=== PATIENT | female | born 1995 | race Caucasian/White ===

== ENCOUNTER 2016-07-25 10:30 | Outpatient (CLI) | payer BC | END 2016-07-25 10:31 | disposition home or self-care (01) | DX: N39.0 Urinary tract infection, site not specified (principal) ==

== ENCOUNTER 2017-06-04 10:31 | Outpatient (CLI) | payer OTHER ==
--- NOTE | 2017-06-09 16:13 | Ultrasound Report ---
EXAM: Ultrasound right breast. 06/04/2017 CLINICAL INDICATION: Palpable abnormality 11 o'clock right breast on clinical examination. TECHNIQUE: Real-time scanning was performed with medical field representative static images obtained. Ultrasound of the right upper breast was performed. Heterogeneous fibroglandular parenchyma is seen. No discrete solid or cystic lesion is appreciated. No sonographically suspicious findings are identified. IMPRESSION: No sonographic correlate to the palpable abnormality. RECOMMENDATIONS: Continued clinical management. Routine annual mammography, commencing at age 40, unless otherwise clinically indicated. BIRADS 1 - Negative. TD: 06/04/2017 19:40 MTDShannon
== END 2017-06-04 10:32 | disposition home or self-care (01) ==
LOC: DI 10:31
PROVIDERS: ATTEND Family Medicine
DX: N63.11 Unspecified lump in the right breast, upper outer quadrant (principal)
CPT/HCPCS: 76642

== ENCOUNTER 2019-04-06 02:46 | Emergency (ER) | payer MEDICAID, OTHER ==
[2019-04-06 02:57] VITALS: BP 125/77
[2019-04-06 03:05] LABS: BILIRUBIN,URINE NEGATIVE (NEGATIVE); GLUCOSE, URINE (UA) NEGATIVE (NEGATIVE); KETONES,URINE (UA) NEGATIVE (NEGATIVE); LEUKOCYTE ESTERASE, URINE NEGATIVE (NEGATIVE); NITRITE,URINE NEGATIVE (NEGATIVE); OCCULT BLOOD,URINE NEGATIVE (NEGATIVE); PROTEIN,URINE NEGATIVE (NEGATIVE); UROBILINOGEN,URINE 0.2 (NORMAL) E.U./dL (NORMAL)
[2019-04-06 03:07] LABS: CLARITY,URINE CLEAR (CLEAR); HCG UR QUAL NEGATIVE
--- NOTE | 2019-04-06 03:10 | ED Physician Documentation ---
PD HPI ABD PAIN - Stated complaint Stated Complaint: R ABD PX - Chief complaint Chief Complaint: Abd Pain - History obtained from History obtained from: Patient - History of Present Illness Timing - onset: How many hours ago (1) Timing - duration: Hours (1) Timing - details: Abrupt onset, Still present (improving after arrival to the ER. Only mild pain on my initial exam.) Quality: Cramping, Aching, Pain Location: RLQ, Suprapubic Improved by: Laying still Worsened by: Moving, Palpation. No: Breathing Associated symptoms: Nausea, Vomiting. No: Fever, Diarrhea, Constipation, Dysuria, Vaginal dc Similar symptoms before: Diagnosis (Similar to ruptured cyst she has had in the past. She denies any history of kidney stones.) Recently seen: Not recently seen Review of Systems Constitutional: denies: Fever, Chills Nose: denies: Rhinorrhea / runny nose, Congestion Throat: denies: Sore throat Respiratory: denies: Cough GI: reports: Abdominal Pain, Nausea, Vomiting : denies: Dysuria, Frequency, Missed period PD PAST MEDICAL HISTORY - Past Medical History Cardiovascular: None Respiratory: None Neuro: None Endocrine/Autoimmune: None GENERAL LABOR: Ovarian cysts : None Psych: Anxiety - Past Surgical History Past Surgical History: No - Present Medications Home Medications: Ambulatory Orders Medication Instructions Recorded Confirmed Bupropion HCl [Wellbutrin] 75 mg PO DAILY 09/05/15 09/05/15 Ibuprofen [Motrin] 800 mg PO Q8H PRN #30 tablet 09/05/15 Hydrocodone/Acetaminophen [[place] 1 each PO Q6H PRN #15 tablet 04/06/19 5-325 Tablet] Naproxen 375 mg PO BID #20 tablet 04/06/19 - Allergies Allergies/Adverse Reactions: Allergies Allergy/AdvReac Type Severity Reaction Status Date / Time No Known Drug Allergies Allergy Verified 11/12/13 19:00 - Social History Does the pt smoke?: No Smoking Status: Never smoker Does the pt drink ETOH?: Yes Does the pt have substance abuse?: No - Immunizations Immunizations are current?: Yes - POLST Patient has POLST: No PD ED PE NORMAL - Vitals Vital signs reviewed: Yes - General General: Alert and oriented X 3, No acute distress, Well developed/nourished - Cardiac Cardiac: RRR, No murmur - Respiratory Respiratory: Clear bilaterally - Abdomen Abdomen: Normal bowel sounds, Soft, Non distended, No organomegaly, Other (Mild tenderness in the right lower quadrant without any guarding. There is no percussion tenderness. There is no rebound in the abdomen.) - Back Back: No CVA TTP - Derm Derm: Normal color, Warm and dry - Neuro Neuro: Alert and oriented X 3, No motor deficit, Normal speech Results - Vitals Vitals: Vital Signs - 24 hr 04/06/19 04/06/19 02:54 04:03 Temperature 36.9 C Heart Rate 77 Respiratory 19 16 Rate Blood Pressure 125/77 O2 Saturation 100 Oxygen O2 Source Room air - Labs Labs: Laboratory Tests 04/06/19 02:50 Urine Color YELLOW Urine Clarity CLEAR Urine pH 6.0 Ur Specific [place] 1.025 Urine Protein NEGATIVE Urine Glucose (UA) NEGATIVE Urine Ketones NEGATIVE Urine Occult Blood NEGATIVE Urine Nitrite NEGATIVE Urine Bilirubin NEGATIVE Urine Urobilinogen 0.2 (NORMAL) Ur Leukocyte Esterase NEGATIVE Ur Microscopic Review NOT INDICATED Urine Culture Comments NOT INDICATED Urine HCG, Qual NEGATIVE PD MEDICAL DECISION MAKING - ED course Complexity details: considered differential (Seems likely consistent with a ruptured ovarian cyst with improvement now. Consider intermittent torsion or kidney stone alternatives. However she has not had kidney stones previously. With the pain improving I would have a low suspicion for persistent flow abnormality to the ovary. I talked with the patient and she shared decision for not doing any imaging at this point and go with some anti-inflammatories and time.), d/w patient Departure - Departure Disposition: 01 Home, Self Care Clinical Impression: Right lower quadrant abdominal pain, Ruptured cyst of ovary Condition: Stable Record reviewed to determine appropriate education?: Yes Instructions: ED Abdominal Pain Unkn Cause Prescriptions: Hydrocodone/Acetaminophen [[place] 5-325 Tablet] 1 each PO Q6H PRN #15 tablet PRN Reason: Pain Naproxen 375 mg PO BID #20 tablet Comments: Given the pattern of the pain and your history of cysts, it would make sense that this was a ruptured ovarian cyst. There is no signs of bladder infection in your urine to suggest kidney stone or urinary tract infection. Your pregnan cy test was negative. It does not sound like the pattern for appendicitis. He can be reasonable to treat this with anti-inflammatories and pain medicine as needed over the next few days and see if it just continues to improve and be well. Recheck if not better over the next couple of days. Return if worsening pain again or other symptoms such as fever vomiting diarrhea, worsening pain etc. Discharge Date/Time: 04/06/19 03:45
[2019-04-06] MEDS ORDERED: NAPROXEN 250 MG TABLET PO STA (03:29)
[2019-04-06] MEDS ORDERED: HYDROcod/ACET 5/325 Prepack 4 PO STA (03:32)
[2019-04-06] MEDS: HYDROcod/ACETAM 5/325 MG TABLET PO STA ×2 (03:40→03:41)
== END 2019-04-06 03:45 | disposition home or self-care (01) ==
LOC: ED 02:46
DX: R10.31 Right lower quadrant pain (principal); N83.299 Other ovarian cyst, unspecified side; R11.2 Nausea with vomiting, unspecified
CPT/HCPCS: 81003; 81025; 99283; 99284; A9270; 81001; 87086

== ENCOUNTER 2022-12-29 13:00 | Outpatient (CLI) | payer OTHER ==
[2022-12-29 19:20] LABS: BASOPHILS % (AUTO) 0.5 %; EOSINOPHILS # (AUTO) 0.1 10^3/uL (0.0-0.7); EOSINOPHILS % (AUTO) 1.5 %; HCT - HEMATOCRIT 38.6 % (37.0-47.0); HGB - HEMOGLOBIN 12.4 g/dL (12.0-16.0); LYMPHOCYTES # (AUTO) 1.5 10^3/uL (1.5-3.5); LYMPHOCYTES % (AUTO) 25.3 %; MEAN CORPUSCULAR HEMOGLOBIN 29.2 pg (27.0-31.0); MEAN CORPUSCULAR HGB CONC 32.1 g/dL (32.0-36.0); MEAN PLATELET VOLUME 9.9 fL (7.9-10.8); MONOCYTES # (AUTO) 0.5 10^3/uL (0.0-1.0); MONOCYTES % (AUTO) 8.1 %; NEUTROPHILS # (AUTO) 3.9 10^3/uL (1.5-6.6); NEUTROPHILS % (AUTO) 64.3 %; PLT - PLATELET COUNT 312 10^3/uL (130-450); RED BLOOD COUNT 4.24 10^6/uL (4.20-5.40); RED CELL DISTRIBUTION WIDTH 13.3 % (12.0-15.0); WHITE BLOOD COUNT 6.1 x10^3/uL (4.8-10.8)
[2022-12-29 19:44] LABS: THYROID STIMULATING HORMONE 2.86 uIU/mL (0.34-5.60)
[2022-12-29 19:51] LABS: % IRON SATURATION 20 % (20-50); IRON 79 ug/dL (28-170); TOTAL IRON BINDING CAPACITY 392 ug/dL (250-450); TRANSFERRIN 280 mg/dL (192-382)
== END 2022-12-29 13:15 | disposition home or self-care (01) ==
LOC: MERGE 13:00 → LAB.N 13:00
PROVIDERS: ATTEND Family Medicine
DX: D64.9 Anemia, unspecified (principal); R53.81 Other malaise; R53.83 Other fatigue
CPT/HCPCS: 36415; 83540; 84443; 84466; 85025

== ENCOUNTER 2023-08-09 12:16 | Emergency (ER) | payer OTHER ==
[2023-08-09 12:28] VITALS: O2SAT 100
--- NOTE | 2023-08-09 13:33 | ED Physician Documentation ---
PD HPI CHEST PAIN - Stated complaint Stated Complaint: CHEST PX,HEART FLUTTERS,WEAK - Chief complaint Chief Complaint: Cardiac - History obtained from History obtained from: Patient - Additional information Additional information: 28-year-old with a history of anxiety, otherwise healthy. She was in her usual state of health last night when she used a nicotine vape pen and was also using some THC and then drinks white wine. Subsequently she started to feel weak and dizzy and had a syncopal episode. Overnight and continuing she had some chest tightness and heart flutters. She does have a history of syncope but feels this was different. She denies pedal edema, calf pain. She is mild short of breath with this. No possibility . PD PAST MEDICAL HISTORY - Past Medical History Past Medical History: Yes Cardiovascular: None Respiratory: None Neuro: None Endocrine/Autoimmune: None GI: None REGISTERED DENTAL ASSISTANT RDA: Ovarian cysts : None HEENT: None Psych: Anxiety Musculoskeletal: None Derm: None - Past Surgical History Past Surgical History: No - Present Medications Home Medications: Ambulatory Orders Medication Instructions Recorded Confirmed No Known Home Medications 08/09/23 08/09/23 - Allergies Allergies/Adverse Reactions: Allergies Allergy/AdvReac Type Severity Reaction Status Date / Time No Known Drug Allergies Allergy Verified 08/09/23 12:26 - Social History Does the pt smoke?: No Smoking Status: Never smoker Does the pt drink ETOH?: Yes Does the pt have substance abuse?: No - Immunizations Immunizations are current?: Yes - POLST Patient has POLST: No PD ED PE NORMAL - Vitals Vital signs reviewed: Yes - General General: Alert and oriented X 3, No acute distress - HEENT HEENT: PERRL, EOMI - Cardiac Cardiac: RRR, No murmur - Respiratory Respiratory: No respiratory distress, Clear bilaterally - Abdomen Abdomen: Non tender - Neuro Neuro: Alert and oriented X 3, Normal speech Results - Vitals Vitals: Vital Signs - 24 hr 08/09/23 08/09/23 12:22 14:29 Temperature 36.7 C 36.8 C Heart Rate 87 57 L Respiratory 16 13 Rate Blood Pressure 145/80 H 120/78 O2 Saturation 100 100 Oxygen O2 Source Room air - EKG (time done) 1228 EKG releavant findings:: EKG personally interpreted by author of this note. Relevant findings are: Rate: Rate (enter#) (64) Rhythm: NSR [place]: Normal Intervals: Normal MS QRS: Normal Ischemia: Normal ST segments Computer interpretation: Disagree with computer (Computer calling Q waves, she has more of an RSR prime for me in V1 and V2) - Labs Labs: Laboratory Tests 08/09/23 08/09/23 13:38 13:38 WBC 5.8 RBC 4.80 Hgb 13.9 Hct 43.5 MCV 90.6 MCH 29.0 MCHC 32.0 RDW 12.9 Plt Count 318 MPV 9.5 Neut # (Auto) 3.8 Lymph # (Auto) 1.5 [place] # (Auto) 0.5 Eos # (Auto) 0.1 Baso # (Auto) 0.0 Absolute Nucleated RBC 0.00 Nucleated RBC % 0.0 Sodium 136 Potassium 3.7 Chloride 105 Carbon Dioxide 25 Anion Gap 6.0 BUN 12 Creatinine 0.8 Estimated GFR (MDRD) 85 L Glucose 95 Calcium 9.5 Magnesium 1.7 Total Bilirubin 1.0 AST 14 ALT 7 L Alkaline Phosphatase 45 Troponin I High Sens 2.3 Total Protein 7.5 Albumin 4.5 Globulin 3.0 Albumin/Globulin Ratio 1.5 - Rads (name of study) Single view chest x-ray is unremarkable. Relevant Findings:: Final report received, EMP independent interpretation of test PD Medical Decision Making - ED course ED course: She presents with chest pain and flutters after syncopal episode last night. There was nicotine, THC, and alcohol involved last night which might be explanatory but certainly needed the workup here which was done with a normal CBC without anemia or any abnormal findings. CMP was unremarkable. Troponin normal/negative. Chest x-ray normal/negative. Departure - Departure Disposition: 01 Home, Self Care Clinical Impression: Chest pain Qualifiers: Chest pain type: unspecified Qualified Code(s): R07.9 - Chest pain, unspecified Syncope Qualifiers: Syncope type: unspecified Qualified Code(s): R55 - Syncope and collapse Condition: Good Record reviewed to determine appropriate education?: Yes Instructions: ED Chest Pain NonCardiac Comments: No worrisome diagnostic findings on lab testing, chest x-ray, or EKG today. Call your doctor to arrange a follow-up appointment, make the next available appointment. In the interim, return anytime if worse or if new symptoms develop. Forms: PCP List Discharge Date/Time: 08/09/23 14:30
[2023-08-09 13:42] LABS: BASOPHILS % (AUTO) 0.7 %; EOSINOPHILS # (AUTO) 0.1 10^3/uL (0.0-0.7); EOSINOPHILS % (AUTO) 0.9 %; HCT - HEMATOCRIT 43.5 % (37.0-47.0); HGB - HEMOGLOBIN 13.9 g/dL (12.0-16.0); LYMPHOCYTES # (AUTO) 1.5 10^3/uL (1.5-3.5); LYMPHOCYTES % (AUTO) 25.2 %; MEAN CORPUSCULAR VOLUME 90.6 fL (81.0-99.0); MEAN PLATELET VOLUME 9.5 fL (7.9-10.8); MONOCYTES # (AUTO) 0.5 10^3/uL (0.0-1.0); MONOCYTES % (AUTO) 8.6 %; NEUTROPHILS # (AUTO) 3.8 10^3/uL (1.5-6.6); NEUTROPHILS % (AUTO) 64.3 %; PLT - PLATELET COUNT 318 10^3/uL (130-450); RED CELL DISTRIBUTION WIDTH 12.9 % (12.0-15.0); WHITE BLOOD COUNT 5.8 x10^3/uL (4.8-10.8)
[2023-08-09 14:04] LABS: ALBUMIN 4.5 g/dL (3.2-5.5); ALBUMIN/GLOBULIN RATIO 1.5 (1.0-2.2); CALCIUM 9.5 mg/dL (8.5-10.3); CREATININE 0.8 mg/dL (0.6-1.3); MAGNESIUM 1.7 mg/dL (1.7-2.3); POTASSIUM 3.7 mmol/L (3.5-4.5); TOTAL PROTEIN 7.5 g/dL (6.4-8.9)
[2023-08-09 14:13] LABS: TROPONIN I HIGH SENSITIVITY 2.3 ng/L (2.3-14.8)
[2023-08-09 14:34] VITALS: BP 120/78
--- NOTE | 2023-08-09 14:39 | XRAY Report ---
PROCEDURE: Chest 1V INDICATIONS: chest discomfort TECHNIQUE: One view of the chest was acquired. COMPARISON: None. FINDINGS: Surgical changes and devices: None. Lungs and pleura: No pleural effusions or pneumothorax. Lungs are clear. Mediastinum: Mediastinal contours appear normal. Heart size is normal. Bones and chest wall: No suspicious bony lesions. Overlying soft tissues appear unremarkable. IMPRESSION: No acute cardiopulmonary process. Reviewed by: Shanice Alfredo MD on 08/09/2023 2:37 PM PST Approved by: Shanice Alfredo MD on 08/09/2023 2:37 PM PST Station ID: [id number]
== END 2023-08-09 14:30 | disposition home or self-care (01) ==
LOC: ED 12:16
DX: R55 Syncope and collapse (principal); R07.9 Chest pain, unspecified; F17.290 Nicotine dependence, other tobacco product, uncomplicated
CPT/HCPCS: 36415; 80053; 83735; 84484; 85025; 93005; 99283; 99284